=== PATIENT | male | born 1950 | race Caucasian/White ===

== ENCOUNTER → 2020-09-22 | Outpatient (CLI) | payer OTHER | LOC: CAT 08:36 | PROVIDERS: ATTEND Family Medicine | DX: Z13.6 Encounter for screening for cardiovascular disorders (principal) ==

== ENCOUNTER → 2020-10-09 | Outpatient (CLI) | payer OTHER | LOC: CAT 15:11 | PROVIDERS: ATTEND Family Medicine | DX: R51.9 Headache, unspecified (principal); Z85.46 Personal history of malignant neoplasm of prostate ==